=== PATIENT | male | born 2005 | race Caucasian/White ===

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

== ENCOUNTER 2025-04-14 03:30 | Emergency (ER) | payer OTHER, SELFPAY ==
[2025-04-14 03:30] VITALS: BP 160/88; PULSE 81; RESP 16; TEMP 36.6; O2SAT 100; BMI 26.9
--- NOTE | 2025-04-14 03:56 | ED.VIS.GI ---
HPI HPI - GI History of Present Illness Chief Complaint: Abd Pain Informant: patient Narrative Narrative: Patient is a 19-year-old male with no significant PMHx presenting with left lower abdominal pain radiating to the back and testicle. - Onset of pain began yesterday morning, initially mild but worsened throughout the day and became severe by nighttime. - Pain is primarily located in the left lower abdomen, radiating to the back and testicle; describes the pain as bouncing around between these areas. - Denies dysuria, fever, nausea, or emesis. - Reports normal bowel movements. - Pain has improved since last night, with intermittent relief during the journey to the ED. - Took ibuprofen after dinner yesterday around [id number], which provided some relief. - No prior history of similar pain; had an appendectomy 4-5 years ago. -Possibly had a previous kidney stone but did not seek medical attention at that time. PFSH PFSH Medical History no medical history no medical history Home Medications ?Medication ?Instructions ?Recorded ?Last Taken ?Type hydrocodone-acetaminophen 5-325mg 1 tab PO Q4H PRN PRN Pain 3 days 04/14/25 Unknown Rx 5mg-325mg #15 TABLETS tamsulosin 0.4 mg capsule 0.4 mg PO DAILY #7 caps 04/14/25 Unknown Rx Allergy/AdvReac Type Severity Reaction Status Date / Time No Known Allergies Allergy Verified 04/14/25 03:35 Surgical History S/P appendectomy Social History Smoking Status: Never smoker ROS ROS ED Constitutional Constitutional ED: Denies chills or fever(s) Eyes Eyes: Denies change in vision or diplopia ENT ENT ED: Denies rhinorrhea or sore throat Cardiovascular Cardiovascular: Denies chest pain or palpitations Respiratory/Chest Respiratory/Chest: Denies cough or dyspnea Gastrointestinal Gastrointestinal: Reports abdominal pain; Denies diarrhea, nausea or vomiting Genitourinary Genitourinary ED: Reports flank pain; Denies dysuria or hematuria Musculoskeletal Musculoskeletal: Reports other Details: Pain has gone into his left mid back a couple times but not now or consistently ; Denies neck pain Integumentary Denies abscess or rash Neurologic Neurologic: Denies headache(s), paresthesias or weakness Psychiatric Psychiatric: Denies anxiety or suicidal thoughts EXAM Physical Exam Const Vital Signs: 04/14/25 03:30 Temperature 98 F Temperature Source Oral Pulse Rate 81 Respiratory Rate 16 Blood Pressure 160/88 H Blood Pressure Mean 112 Pulse Ox 100 Oxygen Delivery Method Room Air Positive well nourished and well developed General Appearance ED: well developed and NAD HEENT Reports moist mucous membranes normocephalic and atraumatic Eyes PERRL and EOMs intact bilaterally Neck full ROM and supple Resp normal respiratory effort and clear to auscultation bilaterally Cardio regular rate, regular rhythm and no murmurs GI non-tender and non-distended Auscultation: normoactive bowel sounds Palpation: soft Back/Spine no CVA tenderness General Back: other FROM Extremity normal to inspection General Extremety ED: Negative for edema, pulses abnormal or tenderness General Extremity: Negative for edema or pulses abnormal Neuro oriented x3, CN's II-XII intact bilaterally and no sensory deficits noted Sensorium / Orientation: awake and alert Motor Exam: strength 5/5 throughout Skin no rashes or lesions noted and no wounds MDM MDM MDM Narrative Medical decision making narrative: Assessment: The patient is a 19-year-old male with PMH of remote appendectomy presenting for sudden-onset left flank and lower abdominal pain radiating to the groin since yesterday morning. CT imaging demonstrates a 4 mm distal ureteral calculus with no additional stones; urinalysis shows microscopic hematuria, and labs reveal mild leukocytosis (12.4) and mildly elevated BUN/creatinine (23/1.37). Findings correlate with left-sided renal colic due to ureteral stone. Renal function stable enough for outpatient management. Plan: -Analgesics in ED were not needed per patient; advised to avoid ibuprofen given mild NARCISO - Prescribed oral analgesics for pain - Prescribed Flomax to possibly facilitate stone passage - Provided urine strainers and instructions for stone capture - Encouraged aggressive oral hydration - Discharged home with return precautions for fever, intractable pain, vomiting, or urinary obstruction symptoms; follow-up for reevaluation and renal function recheck Diagnostics: - CT abdomen/pelvis without contrast: single 4 mm distal left ureteral calculus; no additional nephrolithiasis; no hydronephrosis - Urinalysis: microscopic hematuria, no signs of infection - CBC: WBC 12.4 K/?L, no left shift or bands - BMP: BUN 23 mg/dL, creatinine 1.37 mg/dL Reevaluations: - Patient re-evaluated after imaging; pain improved, understands diagnosis and discharge instructions Portions of this note were generated using voice recognition software ([employer]). I have reviewed the contents and every effort has been made to ensure accuracy; however, inadvertent errors in grammar, spelling, punctuation, or word choice may occur, that were not noted before signing the document and should not alter the intended clinical meaning. Lab Data Attestation: I reviewed the patient's lab results. Labs: Laboratory Results - last 24 hr 04/14/25 04/14/25 03:38 04:51 WBC 12.4 H RBC 5.21 Hgb 14.3 Hct 43.7 MCV 83.9 MCH 27.4 MCHC 32.7 RDW Std Deviation 38.3 RDW Coeff of Gilberto 12.5 Plt Count 311 MPV 10.6 Immature Gran % (Auto) 0.500 Neut % (Auto) 62.8 Lymph % (Auto) 25.5 [place] % (Auto) 7.1 Eos % (Auto) 3.5 Baso % (Auto) 0.6 Absolute Neuts (auto) 7.8 H Absolute Lymphs (auto) 3.15 Nucleated RBC % 0 Sodium 141 Potassium 3.5 Chloride 104 Carbon Dioxide 24.4 Anion Gap 12 BUN 23 H Creatinine 1.37 H Estim Creat Clear Calc 80.41 Est GFR (MDRD) Non-Af 76 BUN/Creatinine Ratio 16.8 Glucose 98 Calcium 9.5 Urine Color Yellow Urine Clarity Sl. Cloudy Urine pH 6.0 Ur Specific [place] 1.010 Urine Protein 30 H Urine Glucose (UA) Normal Urine Ketones Negative Urine Occult Blood 250 H Urine Nitrite Negative Urine Bilirubin Negative Urine Urobilinogen Normal Ur Leukocyte Esterase Negative Urine RBC 10-25 SEEN Urine WBC 0 SEEN Ur Squamous Epith Cells 0 SEEN Urine Bacteria 0 SEEN Urine Mucus 0 SEEN Radiography Diagnostic Testing: Clinical Impression(s) from Imaging Studies Abdomen/Pelvis CT 04/14/25 04:00 IMPRESSION: Left ureteric calculus with consequent mild proximal backpressure changes. Bilateral renal punctate non obstructing calculi. Reading [facility] [address] Discharge Plan Triage Chief Complaint: Abd Pain ED Provider: Jonathan Fish Dx/Rx/DC Orders Clinical Impression: Renal colic on left side, Ureterolithiasis, NARCISO (acute kidney injury), Bilateral nephrolithiasis Instructions: ED Urine Strainer, ED Kidney Stone with Pain Prescriptions: New hydrocodone-acetaminophen 5-325 mg tablet 1 tab PO Q4H PRN PRN (Reason: Pain) 3 Days Qty: 15 0RF tamsulosin 0.4 mg capsule 0.4 mg PO DAILY Qty: 7 0RF Primary Care Provider: Bello Osei Referrals: Bello Osei MD [Primary Care Provider, Family Practice] Agustin Kirkland MD [Med Staff - Active Staff, Urology] - 10-14 Days if not better Referral Note: if not passing stone in 1-2 weeks Activity Restrictions/Additional Instructions: - Take the prescribed tamsulosin (Flomax) daily to help the stone pass. If you catch a stone in strainer, you may stop this medicine. - Use your prescribed pain medicine as directed as needed for discomfort; avoid ibuprofen for now until you have repeat bloodwork. - Drink plenty of water and other fluids to help flush the stone through your urinary tract. - Each time you urinate, use the provided urine strainer to catch the stone; you?ll see a small pebble in the filter when it passes. - If you develop a fever, cannot keep medications down, or your pain becomes severe and unmanageable, return to the emergency department right away. - Schedule repeat blood tests (BUN and creatinine) as an outpatient to monitor your kidney function (they were bumped up a little but not enough to necesitate admission to hospital) -- drink plenty of fluids in the meantime. Print Language: [place] Disposition Disposition: Home, Self Care
--- NOTE | 2025-04-14 04:00 | CT_ITS ---
PROCEDURE: ABDOMEN/PELVIS WITHOUT CONT 04/14/2025 REASON FOR EXAM: PAIN LEFT FLANK INTO GROIN/SCROTUM TECHNIQUE: Procedure Code: CTABDPEL Modality: CT Procedure: ABDOMEN/PELVIS WITHOUT CONT Noncontrast technique limits evaluation of the abdominal and pelvic viscera. Coronal and Sagittal reconstruction series were provided. One or more dose reduction techniques were used (e.g., Automated exposure control, adjustment of the mA and/or kV according to patient size, use of iterative reconstruction technique). RADIATION DOSE SUMMARY: CTDI Vol 13.71 mGy DLP :713.64 mGycm COMPARISON: none FINDINGS: Left distal ureteric 4 mm calculus with consequent mild proximal left ureteric and pelvicalyceal system dilatation with perinephric and periureteric fat stranding. Both kidneys are of average size showing preserved parenchymal thickness. Bilateral renal punctate non obstructing calculi. No right hydronephrosis. Distension of the urinary bladder. No obvious masses or calculi. No obvious masses related to the reproductive system. Pewlvic phleboli noted. Average sized liver showing homogenous parenchymal attenuation. No dilated intra or extra-hepatic biliary tracts. Distended gall bladder with no dense calculi. The unenhanced pancreas, adrenal, spleen, aorta, and IVC are unremarkable. The appendix is not identified. Colonic fecal loading. The small bowel loops are unremarkable. The stomach is unremarkable. No free air and no ascites. No obvious pathologically enlarged lymph nodes. Scanned osseous structures show no osseous destruction. Scanned lung bases are unremarkable. CT/Abdomen/Pelvis without Cont IMPRESSION: Left ureteric calculus with consequent mild proximal backpressure changes. Bilateral renal punctate non obstructing calculi. Reading Location[facility]
[2025-04-14 04:05] LABS: Hematocrit 43.7 % (40-54); Hemoglobin 14.3 g/dL (13.0-16.5); Immature Granulocytes Count 0.060 X10^3/uL (0.0-0.0); Mean Corp Hgb Conc 32.7 g/dL (32-36); Mean Corpuscular Volume 83.9 fL (80-94); Mean Platelet Vol. 10.6 fl (6.2-12.0); NRBC Flagged by Analyzer 0 % (0-5); Platelet Count 311 K/mm3 (150-450); RBC Distribution Width CV 12.5 % (11.6-14.6); RBC Distribution Width SD 38.3 fl (35.1-43.9); Red Blood Count 5.21 M/mm3 (4.6-6.2); White Blood Count 12.4 K/mm3 (4.4-11.0)
--- OUTSIDE RECORDS SUMMARY | 2025-04-14 04:22 | XMS RPT_ITS | CCD ---
Author Organization [facility] Care Team Providers Care Cpr Ambulance Driver Name Role Phone Sea SLADENDebbi RUSS Primary Care Provider [phone] DEBBI OSEI Primary Care Unavailable DEBBI OSEI Primary Care Unavailable Ford Oliveros Attending Unavailable Debbi Osei Referring Unavailable Debbi Osei Primary Care Unavailable Allergies Allergy Classification Reported Allergen(s) Allergy Type Date of Onset Reaction(s) Facility (4 sources) Albuterol; Translations: [ALBUTEROL] Drug Allergy 05-02-2012 Other: See Comments [facility] Medications Current Medications Medication Drug Class(es) Dates Sig (Normalized) Sig (Original) amoxicillin 875 mg oral tablet (3 sources) Penicillin-class Antibacterial Start: 05-31-2023 End: 06-07-2023 take 1 tablet by mouth twice daily amoxicillin (AMOXIL) 875 mg tablet Take 1 tablet by mouth two times a day for 7 days. 14 tablet 0 05/31/2023 06/07/2023 Active Start: 10-11-2021 End: 10-21-2021 take 1 capsule by mouth twice daily amoxicillin (POLYMOX, AMOXIL) 500 mg capsule Take 1 capsule by mouth twice daily for 10 days. 20 capsule 0 10/11/2021 10/21/2021 Active Comment on above: Take 1 capsule by mo [facility] twice daily for 10 days. Take 1 tablet by renea two times a day for 7 days. Completed/Discontinued Medications Medication Drug Class(es) Dates Sig (Normalized) Sig (Original) lidocaine hydrochloride 20 mg/ml mucous membrane topical solution (3 sources) Antiarrhythmic, Amide Local Anesthetic Start: 08-24-2018 End: 06-04-2023 lidocaine viscous (LIDOCAINE VISCOUS) 2 % solution Gargle and spit 10-15mLs every 3-4 hours as need for throat discomfort. 120 mL 0 08/24/2018 06/04/2023 Discontinued Comment on above: Gargle and spit 10-1 5mLs every 3-4 hours as need for throat discomfort. Problems Problem Classification Problem Date Documented Da te Episodic/Chronic Other upper respiratory infections (2 sources) Streptococcal sore throat; Translations: [Streptococcal pharyngitis] Episodic Otitis media and related conditions (1 source) Acute left otitis media; Translations: [Otitis media, unspecified, left ear] 05-31-2023 Episodic Superficial injury; contusion (1 source) Tick bite; Translations: [Insect bite (nonvenomous) of right front wall of thorax, initial encounter] 06-04-2023 Episodic Results Test Name Value Interpretation Reference Range Facil ity Urgent Care Visit Reporton 0 12-31-2023 Urgent Care Visit Report [facility] [address], [address] [place] [address] OFFICE VISIT Date of Service: 12/31/23 MR#: [id number] Acct: [id number] Name: KRISTOPHERNIXON YEAGER Rep #: [id number] : 2005 Provider: DIPAK Nieto Age/Sex: 18/M Location: [facility] Status: Signed Intake Vital Signs 12/02/20 13:40 12/31/23 11:55 Height 5 ft 8 in 5 ft 7 in Weight: 165 lb BMI 25.8 BP 110/74 Blood Pressure Location Rt brachial Position Sitting Respiration 16 Pulse 88 Pulse Source Monitor Temp 97.8 F Temp Source Temporal Pulse Oximetry (%) 98 Oxygen Delivery Method room air Intake Visit Reasons: BILAT EAR PAIN/SINUS PRESSURE/CONGESTION Chief Complaint: B/L EAR PAIN/ SINUS PRESSURE/ CONGESTION Ju[employer] Officer Required: No Accompanied by: Self Is patient in pain?: No Allergies No Known Allergies Allergy (Verified 12/31/23 11:57) Medications ???Medication ???Instructions ???Recorded ???Confirmed ???Type azithromycin 250 mg tablet See Rx Instructions PO .COMPLEX #6 12/31/23 12/31/23 Rx tabs PFSH Surgical History S/P appendectomy Social History Smoking Status: Never smoker HPI HPI Chief Complaint: B/L EAR PAIN/ SINUS PRESSURE/ CONGESTION Details: NIXON ALCARAZ, is a 18 M who presents to the office today for initial evaluation 48-hour history of sinus congestion each ear pressure, noting left ear is most uncomfortable of all. No complaints of fever, chills, sweats, lightheadedness/dizzin ess, nausea/vomiting. No complaints of chest pain/shortness of breath/dyspnea on exertion. No nlhr-gug-slanmgs products taken to assist. No close contacts with similar complaints. Declining all POC screening upon offering. No other associated symptoms and no other alleviating/aggravatin g factors. ROS Const Constitutional: No other (as above) Exam Const General: cooperative, healthy appearing and no acute distress Nutritional Appearance: average body habitus Orientation: alert, awake and oriented x3 HENMT Head: normal to inspection Ears: hearing grossly normal bilaterally, external ears normal, TM normal right, TM erythematous and bulging left, EAC's normal Nose: external nose normal, nares normal, septum normal and no nasal discharge Face and sinus: normal facial exam, sinuses nontender (Though bilateral maxillary fullness to palpation) and face symmetric Mouth: oral mucosae normal, lip normal, tongue normal and oropharynx normal Throat: posterior oropharynx normal, tonsils normal, uvula midline and postnasal drainage (Purulent) Eyes General: appearance normal, both eyes and all related structures Neck Neck: normal visual inspection, full ROM, no meningeal signs, supple and lymphadenopathy (L>R anterior cervical lymph node swelling/tender to palpation) Neck mass: No Thyroid: thyroid normal Chest Chest palpation inspection: normal inspection of the chest Resp Effort Inspection: normal respiratory effort and able to speak in complete sentences Auscultation: Bilateral: Clear to Auscultation Cardio Palpation: normal PMI Rate: regular rate Rhythm: regular rhythm Heart Sounds: S1 normal, S2 normal, no gallops, no murmurs and no rubs Pulses: radial pulses present GI Inspection: normal to inspection Skin General: no rashes or lesions noted Neuro General: patient alert, patient awake and patient oriented x3 Cognition: normal cognition Speech: speech normal Psych Appearance: grossly normal Mental Status: mental status grossly normal Mood: congruent mood Affect: normal affect Speech and Movement: speech and movement normal Attitude: cooperative Diagnoses Acute otitis media, left H66.92 Acute maxillary sinusitis, unspecified J01.00 Assessment and Plan Assessment and Plan (1) Acute otitis media, left: Status: Acute (2) Acute maxillary sinusitis, unspecified: Status: Acute Plan: Azithromycin as prescribed today. Supportive measures as instructed today. Follow-up with PCP in 3 to 5 days should symptoms not improve, sooner should symptoms worsen or any other concerns develop. Patient states acknowledging understanding all the above Coding Level of Care Code Off vis,new,level 3 Assessment and Plan Assessment and Plan Medications: New azithromycin For 250 mg dose pack: take 500 mg today (day 1), then 250 mg for 4 days (days 2-5) PO 6 tabs 0RF 12/31/23 1345 Date Ford Martins Signature: Date (if applicable) CC: Normal [facility] 06-04-2023 [facility] Office Visit (UCTR ) NIXON ALCARAZ ([id number]) 3 M Date Time Provider Department 06/04/23 10:30 AM BURAK HEIN [facility] During your visit today, we recorded the following information about you: Temperature Pulse Respiration Blood pressure 98.4 degrees 92/minute 19/minute 112/68 Weight 66.2 kg Burak Hein MD 06/04/2023 10:49 AM Signed Patient presents with: Trauma: Tick bite on right side of chest x 1 day HPI: Found a tick on the right chest yesterday. Had been in the [place] the day before. Removed the tick with tweezers. Denies fever, myalgia, or malaise. Currently taking amoxicillin for otitis media. MEDICATIONS: amoxicillin (AMOXIL) 875 mg tablet Take 1 tablet by mouth two times a day for 7 days. ALLERGIES: ALLERGIES Allergen Reactions Albuterol Other: See Comments Mother states he vomits when he uses liquid albuterol VITALS: BP 112/68 Pulse 92 Temp 36.9 ?C (98.4 ?F) Resp 19 Wt 66.2 kg (146 lb) SpO2 99% PE: Pleasant, in no acute distress. EARS: canals clear. RTM without erythema, bulge, or effusion. LTM with remote scaring and effusion, no bulge. SKIN: 2mm dry ulceration with 2mm rim of erythema right upper lateral breast. No foreign body. ASSESSMENT/PLAN: 1. Tick bite of right side of chest wall, initial encounter - ICD9: 911.4, E906.4, ICD10: S20.361A, W57.XXXA Short duration of attachment is very low risk for Lyme transmission. He is also already taking an appropriate antibiotic for Lyme treatment because of his ear infection. May treat with topical antibiotic ointment and monitor for signs of worsening infection. Burak Hein MD Allergies As of Date: 06/04/2023 Noted Allergy Reaction ALBUTEROL 05/02/2012 14 - Other: See Comments Comments: Mother states he vomits when he uses liquid albuterol Date Reviewed: 06/04/2023 Reviewed by: Naomi Rodgers MA - Fully Assessed Reason for Visit: Trauma [112] Cmt: Tick bite on right side of chest x 1 day Primary Visit Diagnosis:Tick bite of right side of chest wall, initial encounter [S20.361A, W57.XXXA] Prescriptions as of 06/04/2023 - amoxicillin (AMOXIL) 875 mg tablet Take 1 tablet by mouth two times a day for 7 days. Problem List As Of Date: 06/04/2023 (None) Medications Discontinued During This Encounter Prescriptions - lidocaine viscous (LIDOCAINE VISCOUS) 2 % solution (Discontinued) Reported on 11/01/2019 Encounter Status:Closed by BURAK HEIN on 06/04/23 [facility] CNOVon 05-31-2023 CNOV Office Visit (UCWSTR ) NIXON ALCARAZ ([id number]) 3 M Date Time Provider Department 05/31/23 11:00 AM KAHLIL SCHULTZ [facility] During your visit today, we recorded the following information about you: Temperature Pulse Respiration Blood pressure 98.8 degrees 85/minute 21/minute 104/72 Weight 66.7 kg Kahlil Schultz PA 05/31/2023 11:16 AM Signed This note was created using Stopango. Subjective Nixon Alcaraz is a 17 year old male. HPI 17-year-old male presents for cough, congestion, body aches, left ear pain. Patient states he has had cough and congestion for the past couple of days. He has some body aches. States he had some nausea and vomiting on Sunday, none since then. Started getting left ear pain last night. No fevers. No sore throat. States he had a right ear infection a few weeks ago. No other complaint. No past medical history on file. No past surgical history on file. ALLERGIES Albuterol MEDICATIONS amoxicillin (AMOXIL) 875 mg tablet Take 1 tablet by mouth two times a day for 7 days. lidocaine viscous (LIDOCAINE VISCOUS) 2 % solution Gargle and spit 10-15mLs every 3-4 hours as need for throat discomfort. (Patient not taking: Reported on 11/01/2019 ) No family history on file. Social History Tobacco Use Smoking status: Never Smokeless tobacco: Never Review of Systems Constitutional: Positive for chills. Negative for fever. HENT: Positive for congestion and ear pain. Negative for sore throat. Respiratory: Positive for cough. Negative for shortness of breath. Gastrointestinal: Positive for nausea. Negative for diarrhea and vomiting. Objective BP 104/72 Pulse 85 Temp 37.1 ?C (98.8 ?F) Resp 21 Wt 66.7 kg (147 lb) SpO2 99% Physical Exam Vitals and nursing note reviewed. Constitutional: General: He is not in acute distress. Appearance: Normal appearance. He is not toxic-appearing. HENT: Right Ear: Tympanic membrane and ear canal normal. Left Ear: Tympanic membrane is erythematous and bulging. Nose: Nose normal. Mouth/Throat: Mouth: Mucous membranes are moist. Pharynx: Uvula midline. Posterior oropharyngeal erythema present. Tonsils: No tonsillar exudate or tonsillar abscesses. 1+ on the right. 1+ on the left. Eyes: Conjunctiva/sclera: Conjunctivae normal. Cardiovascular: Rate and Rhythm: Normal rate and regular rhythm. Pulmonary: Effort: Pulmonary effort is normal. Breath sounds: Normal breath sounds. No wheezing, rhonchi or rales. Skin: General: Skin is warm and dry. Neurological: Mental Status: He is alert. Assessment and Plan ASSESSMENT/PLAN: 1. Acute otitis media, left - ICD9: 382.9, ICD10: H66.92 (primary diagnosis) - Will begin treatment with Amoxicillin for 7 days - Supportive care with plenty of fluids, rest, and analgesia prn. 2. URI, acute - ICD9: 465.9, ICD10: J06.9 - Discussed viral etiology and rationale for treatment. - Symptomatic treatment with prn analgesia - Supportive care with fluids and rest -Declines COVID/flu/RSV swab Diagnosis and treatment plan were discussed and questions were answered to the patient's satisfaction. Pt acknowledged understanding of concepts and follow up plan. Specific signs and symptoms that would indicate the need for higher level of care were discussed in detail warranting prompt ER evaluation. DIPAK Parmar Allergies As of Date: 05/31/2023 Noted Allergy Reaction ALBUTEROL 05/02/2012 14 - Other: See Comments Comments: Mother states he vomits when he uses liquid albuterol Date Reviewed: 05/31/2023 Reviewed by: Naomi Rodgers MA - Fully Assessed Reason for Visit: Ear Problem [38] Cmt: Left ear pain x 1 day, body aches, upset stomach, congestion x 3 days Primary Visit Diagnosis:Acute otitis media, left [H66.92] Other Visit Diagnosis:URI, acute [J06.9] Order(s):amoxicillin (AMOXIL) 875 mg tabletTake 1 tablet by mouth two times a day for 7 days.Disp: 14 tabletRfl: 0 Prescriptions as of 05/31/2023 - amoxicillin (AMOXIL) 875 mg tablet Take 1 tablet by mouth two times a day for 7 days. - lidocaine viscous (LIDOCAINE VISCOUS) 2 % solution Gargle and spit 10-15mLs every 3-4 hours as need for throat discomfort. Problem List As Of Date: 05/31/2023 (None) Prescriptions ordered this encounter Disp Refills Start End AMOXICILLIN 875 MG TABLET 14 t* 0 05/31/2023 06/07/2023 Route: ORAL Sig: Take 1 tablet by mouth two times a day for 7 days. Encounter Status:Closed by KAHLIL SCHULTZ on 05/31/23 Normal [facility] STREP A MOLECULAR (POC)on Procedural Control Valid [facility] Strep A (POCT) Positive Abnormal Negative [facility] Vital Signs Date Time Vital Sign Value Performing Clinician Charmainei tom 06-04-2023 10:28-0500 Body temperature 98.4 [degF] Burak Hein MD Work Phone: [facility] 06-04-2023 10:28-0500 Body weight 66.22 kg Burak Hein MD Work Phone: [facility] 06-04-2023 10:28-0500 Diastolic blood pressure 68 mm[Hg] Burak Hein MD Work Phone: [facility] 06-04-2023 10:28-0500 Heart rate 92 /min Burak Hein MD Work Phone: [facility] 06-04-2023 10:28-0500 Respiratory rate 19 /min Burak Hein MD Work Phone: [facility] 06-04-2023 10:28-0500 SaO2% (BldA) [Mass fraction] 99 % Burak Hein MD Work Phone: [facility] 06-04-2023 10:28-0500 Systolic blood pressure 112 mm[Hg] Burak Hein MD Work Phone: [facility] 05-31-2023 11:07-0500 Body temperature 98.8 [degF] Krislyn Aberegg PA Work Phone: [facility] 05-31-2023 11:07-0500 Body weight 66.68 kg Krislyn Aberegg PA Work Phone: [facility] 05-31-2023 11:07-0500 Diastolic blood pressure 72 mm[Hg] Krislyn Aberegg PA Work Phone: [facility] 05-31-2023 11:07-0500 Heart rate 85 /min Krislyn Aberegg PA Work Phone: [facility] 05-31-2023 11:07-0500 Respiratory rate 21 /min Krislyn Aberegg PA Work Phone: [facility] 05-31-2023 11:07-0500 SaO2% (BldA) [Mass fraction] 99 % Krislyn Aberegg PA Work Phone: [facility] 05-31-2023 11:07-0500 Systolic blood pressure 104 mm[Hg] Krislyn Aberegg PA Work Phone: [facility] 10-11-2021 09:19-0400 Body temperature 98.2 [degF] Mariola Billinsg DONOR RELATIONS COORDINATOR.BRUSH PAINTER Work Phone: [facility] 10-11-2021 09:19-0400 Body weight 64.77 kg Mariola Billings DONOR RELATIONS COORDINATOR.BRUSH PAINTER Work Phone: [facility] 10-11-2021 09:19-0400 Diastolic blood pressure 64 mm[Hg] Mariola Billings DONOR RELATIONS COORDINATOR.BRUSH PAINTER Work Phone: [facility] 10-11-2021 09:19-0400 Heart rate 72 /min Mariola Billings DONOR RELATIONS COORDINATOR.BRUSH PAINTER Work Phone: [facility] 10-11-2021 09:19-0400 Respiratory rate 16 /min Mariola Billings DONOR RELATIONS COORDINATOR.BRUSH PAINTER Work Phone: [facility] 10-11-2021 09:19-0400 SaO2% (BldA) [Mass fraction] 99 % Mariola Billings APRN.BRUSH PAINTER Work Phone: [facility] 10-11-2021 09:19-0400 Systolic blood pressure 122 mm[Hg] Mariola Billings APRN.CNP Work Phone: [facility] Encounters Encounter Date Encounter Type Care Provider Facility Start: 12-31-2023 End: 12-31-2023 ambulatory Ford QUESADA Facility:[facility] Start: 06-04-2023 End: 06-04-2023 ambulatory [facility] Facility:[facility] Start: 06-04-2023 End: 06-04-2023 Patient encounter procedure Burak Hein MD Work Phone: [facility] Comment on above: Tick bite of right s valery of chest wall, initial encounter (Primary Dx) Start: 05-31-2023 End: 05-31-2023 ambulatory [facility] Facility:[facility] Start: 05-31-2023 End: 05-31-2023 Patient encounter procedure Kahlil QUESADA Work Phone: [facility] Comment on above: Acute otitis media, left (Primary Dx); URI, acute Start: 10-11-2021 End: 10-11-2021 Patient encounter procedure Mariola Billings APRN.CNP Work Phone: [facility] Comment on above: Pharyngitis due to S treptococcus species (Primary Dx) Procedures Date Procedure Procedure Detail Performing Clinician Start: 10-11-2021 STREP A MOLECULAR (POC) Mariola Billings APRN.BRUSH PAINTER Work Phone: Plan of Treatment Date Care Activity Detail Author Start: 01-05-2027 Urine microalbumin profile DTa P,Tdap,Td Vaccine (7 - Td or Tdap) [facility] Start: 04-23-2023 Depression Assessment Depression Ass essment [facility] Start: 12-22-2022 Influenza vaccination Influenza Vacc ine (#1) [facility] Start: 2022 Hepatitis C screening Hepatitis C Ok [place] [facility] Start: 2022 HIV screening HIV Screening [facility] Start: 12-22-2021 Influenza vaccination INFLUENZA (Sea son Ended) [facility] Start: 2020 Meningococcal B Vacc ine: Consider Based On Risk (1 of 2 - Patient Seeks Protection) Meningococcal B Vaccine: Consider Based On Risk (1 of 2 - Patient Seeks Protection) [facility] Start: 2020 MENINGOCOCCAL CONJUG ATE (1 - 2-dose series) MENINGOCOCCAL CONJUGATE (1 - 2-dose series) [facility] Start: 2018 PEDS TO ADULT TRANSI TION ANNUAL ASSESSMENT PEDS TO ADULT TRANSITION ANNUAL ASSESSMENT [facility] Start: 2016 Adult depression scr eening assessment DEPRESSION SCREENING [facility] Start: 2016 PEDS TO ADULT TRANSI TION INITIAL DISCUSSION PEDS TO ADULT TRANSITION INITIAL DISCUSSION [facility] Start: 07-05-2015 HPV VACCINE (1 - Mal e 2-dose series) HPV VACCINE (1 - Male 2-dose series) [facility] Start: 2014 MENINGOCOCCAL B: 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 (1 of 2 - Risk Bexsero 2-dose series) MENINGOCOCCAL B: Consider based on risk (1 of 2 - Risk Bexsero 2-dose series) [facility] Start: 2013 HPV Vaccine (1 - Mal e 2-dose series) HPV Vaccine (1 - Male 2-dose series) [facility] Start: 07-05-2011 Urine microalbumin profile DTAP,TDAP ,TD (1 - Tdap) [facility] Start: 2009 COVID-19 VACCINE (#1) COVID-19 VACCI NE (#1) [facility] Start: 2005 MMR (1 of 2 - Standa rd series) MMR (1 of 2 - Standard series) [facility] Start: 2005 VARICELLA (1 of 2 - 2-dose childhood series) VARICELLA (1 of 2 - 2-dose childhood series) [facility] Start: 01-04-2005 Covid-19 Vaccine (#1) Covid-19 Vacci ne (#1) [facility] Start: 2004 POLIO (1 of 3 - 4-do se series) POLIO (1 of 3 - 4-dose series) [facility] Start: 2004 HEPATITIS B (1 of 3 - 3-dose primary series) HEPATITIS B (1 of 3 - 3-dose primary series) [facility] Immunizations Immunization Date Immunization Notes Care Provider Raoul barajas 04-12-2012 influenza virus vacc ine, unspecified formulation Kahlil QUESADA Work Phone: [facility] Payers Date Payer Category Payer Self-pay 2022 Medicaid [id number] 2022 Medicaid [id number] 2022 Medicaid [id number] 2019 Medicaid [employer] [id number] 2019-Present [phone] [address] [place] [address] Medicaid [id number] Unknown [id number] Social History Date Type Detail [facility] Start: 10-11-2021 End: 06-04-2023 Alcohol intake Not Asked [facility] Start: 2005 Sex Assigned At Not on file [facility] Start: 10-01-2021 End: 10-11-2021 Exposure to SARS-CoV-2 (event) Not sure [facility] Work Phone: Start: 03-31-2020 End: 05-31-2023 History of Social function [facility] Start: 03-31-2020 End: 05-31-2023 Tobacco use panel [facility] National Score (1-10 0), lower number is lower risk Not on file [facility] Progress note 06-04-2023 Note Date & Type Note Facility 06-04-2023 Note HNO ID: [id number] Author: BURAK HEIN MD Service: ? Author Type: Physician Type: Progress Notes Filed: 06/04/2023 10:49 Note Text: Patient presents with: Trauma: Tick bite on right side of chest x 1 day HPI: Found a tick on the right chest yesterday. Had been in the [place] the day before. Removed the tick with tweezers. Denies fever, myalgia, or malaise. Currently taking amoxicillin for otitis media. MEDICATIONS: amoxicillin (AMOXIL) 875 mg tablet Take 1 tablet by mouth two times a day for 7 days. ALLERGIES: ALLERGIES Allergen Reactions Albuterol Other: See Comments Mother states he vomits when he uses liquid albuterol VITALS: BP 112/68 Pulse 92 Temp 36.9 ?C (98.4 ?F) Resp 19 Wt 66.2 kg (146 lb) SpO2 99% PE: Pleasant, in no acute distress. EARS: canals clear. RTM without erythema, bulge, or effusion. LTM with remote scaring and effusion, no bulge. SKIN: 2mm dry ulceration with 2mm rim of erythema right upper lateral breast. No foreign body. ASSESSMENT/PLAN: 1. Tick bite of right side of chest wall, initial encounter - ICD9: 911.4, E906.4, ICD10: S20.361A, W57.XXXA Short duration of attachment is very low risk for Lyme transmission. He is also already taking an appropriate antibiotic for Lyme treatment because of his ear infection. May treat with topical antibiotic ointment and monitor for signs of worsening infection. Burak Hein MD [facility] History of Present illness Narrative 06-04-2023 Burak Hein MD - 06/04/2023 10:35 AM EST Note Date & Type Note Facility 06-04-2023 History of Presen t illness Narrative Patient presents with: Trauma: Tick bite on right side of chest x 1 day HPI: Found a tick on the right chest yesterday. Had been in the [place] the day before. Removed the tick with tweezers. Denies fever, myalgia, or malaise. Currently taking amoxicillin for otitis media. MEDICATIONS: amoxicillin (AMOXIL) 875 mg tablet Take 1 tablet by mouth two times a day for 7 days. ALLERGIES: ALLERGIES Allergen Reactions Albuterol Other: See Comments Mother states he vomits when he uses liquid albuterol VITALS: BP 112/68 Pulse 92 Temp 36.9 C (98.4 F) Resp 19 Wt 66.2 kg (146 lb) SpO2 99% PE: Pleasant, in no acute distress. EARS: canals clear. RTM without erythema, bulge, or effusion. LTM with remote scaring and effusion, no bulge. SKIN: 2mm dry ulceration with 2mm rim of erythema right upper lateral breast. No foreign body. ASSESSMENT/PLAN: 1. Tick bite of right side of chest wall, initial encounter - ICD9: 911.4, E906.4, ICD10: S20.361A, W57.XXXA Short duration of attachment is very low risk for Lyme transmission. He is also already taking an appropriate antibiotic for Lyme treatment because of his ear infection. May treat with topical antibiotic ointment and monitor for signs of worsening infection. Burak Hein MD documented in this encounter [facility] Progress note 05-31-2023 Note Date & Type Note Facility 05-31-2023 Note HNO ID: [id number] Author: KAHLIL SCHULTZ PA Service: ? Author Type: Physician Tile Presser Type: Progress Notes Filed: 05/31/2023 11:16 Note Text: This note was created using [employer]. Subjective Nixon Alcaraz is a 17 year old male. HPI 17-year-old male presents for cough, congestion, body aches, left ear pain. Patient states he has had cough and congestion for the past couple of days. He has some body aches. States he had some nausea and vomiting on Sunday, none since then. Started getting left ear pain last night. No fevers. No sore throat. States he had a right ear infection a few weeks ago. No other complaint. No past medical history on file. No past surgical history on file. ALLERGIES Albuterol MEDICATIONS amoxicillin (AMOXIL) 875 mg tablet Take 1 tablet by mouth two times a day for 7 days. lidocaine viscous (LIDOCAINE VISCOUS) 2 % solution Gargle and spit 10-15mLs every 3-4 hours as need for throat discomfort. (Patient not taking: Reported on 11/01/2019 ) No family history on file. Social History Tobacco Use Smoking status: Never Smokeless tobacco: Never Review of Systems Constitutional: Positive for chills. Negative for fever. HENT: Positive for congestion and ear pain. Negative for sore throat. Respiratory: Positive for cough. Negative for shortness of breath. Gastrointestinal: Positive for nausea. Negative for diarrhea and vomiting. Objective BP 104/72 Pulse 85 Temp 37.1 ?C (98.8 ?F) Resp 21 Wt 66.7 kg (147 lb) SpO2 99% Physical Exam Vitals and nursing note reviewed. Constitutional: General: He is not in acute distress. Appearance: Normal appearance. He is not toxic-appearing. HENT: Right Ear: Tympanic membrane and ear canal normal. Left Ear: Tympanic membrane is erythematous and bulging. Nose: Nose normal. Mouth/Throat: Mouth: Mucous membranes are moist. Pharynx: Uvula midline. Posterior oropharyngeal erythema present. Tonsils: No tonsillar exudate or tonsillar abscesses. 1+ on the right. 1+ on the left. Eyes: Conjunctiva/sclera: Conjunctivae normal. Cardiovascular: Rate and Rhythm: Normal rate and regular rhythm. Pulmonary: Effort: Pulmonary effort is normal. Breath sounds: Normal breath sounds. No wheezing, rhonchi or rales. Skin: General: Skin is warm and dry. Neurological: Mental Status: He is alert. Assessment and Plan ASSESSMENT/PLAN: 1. Acute otitis media, left - ICD9: 382.9, ICD10: H66.92 (primary diagnosis) - Will begin treatment with Amoxicillin for 7 days - Supportive care with plenty of fluids, rest, and analgesia prn. 2. URI, acute - ICD9: 465.9, ICD10: J06.9 - Discussed viral etiology and rationale for treatment. - Symptomatic treatment with prn analgesia - Supportive care with fluids and rest -Declines COVID/flu/RSV swab Diagnosis and treatment plan were discussed and questions were answered to the patient's satisfaction. Pt acknowledged understanding of concepts and follow up plan. Specific signs and symptoms that would indicate the need for higher level of care were discussed in detail warranting prompt ER evaluation. DIPAK Parmar [facility] History of Present illness Narrative 05-31-2023 Kahlil Schultz PA - 05/31/2023 11:14 AM EST Note Date & Type Note Facility 05-31-2023 History of Presen t illness Narrative This note was created using [employer]. Subjective Nixon Alcaraz is a 17 year old male. HPI 17-year-old male presents for cough, congestion, body aches, left ear pain. Patient states he has had cough and congestion for the past couple of days. He has some body aches. States he had some nausea and vomiting on Sunday, none since then. Started getting left ear pain last night. No fevers. No sore throat. States he had a right ear infection a few weeks ago. No other complaint. No past medical history on file. No past surgical history on file. ALLERGIES Albuterol MEDICATIONS amoxicillin (AMOXIL) 875 mg tablet Take 1 tablet by mouth two times a day for 7 days. lidocaine viscous (LIDOCAINE VISCOUS) 2 % solution Gargle and spit 10-15mLs every 3-4 hours as need for throat discomfort. (Patient not taking: Reported on 11/01/2019 ) No family history on file. Social History Tobacco Use Smoking status: Never Smokeless tobacco: Never Review of Systems Constitutional: Positive for chills. Negative for fever. HENT: Positive for congestion and ear pain. Negative for sore throat. Respiratory: Positive for cough. Negative for shortness of breath. Gastrointestinal: Positive for nausea. Negative for diarrhea and vomiting. Objective BP 104/72 Pulse 85 Temp 37.1 C (98.8 F) Resp 21 Wt 66.7 kg (147 lb) SpO2 99% Physical Exam Vitals and nursing note reviewed. Constitutional: General: He is not in acute distress. Appearance: Normal appearance. He is not toxic-appearing. HENT: Right Ear: Tympanic membrane and ear canal normal. Left Ear: Tympanic membrane is erythematous and bulging. Nose: Nose normal. Mouth/Throat: Mouth: Mucous membranes are moist. Pharynx: Uvula midline. Posterior oropharyngeal erythema present. Tonsils: No tonsillar exudate or tonsillar abscesses. 1+ on the right. 1+ on the left. Eyes: Conjunctiva/sclera: Conjunctivae normal. Cardiovascular: Rate and Rhythm: Normal rate and regular rhythm. Pulmonary: Effort: Pulmonary effort is normal. Breath sounds: Normal breath sounds. No wheezing, rhonchi or rales. Skin: General: Skin is warm and dry. Neurological: Mental Status: He is alert. Assessment and Plan ASSESSMENT/PLAN: 1. Acute otitis media, left - ICD9: 382.9, ICD10: H66.92 (primary diagnosis) - Will begin treatment with Amoxicillin for 7 days - Supportive care with plenty of fluids, rest, and analgesia prn. 2. URI, acute - ICD9: 465.9, ICD10: J06.9 - Discussed viral etiology and rationale for treatment. - Symptomatic treatment with prn analgesia - Supportive care with fluids and rest -Declines COVID/flu/RSV swab Diagnosis and treatment plan were discussed and questions were answered to the patient's satisfaction. Pt acknowledged understanding of concepts and follow up plan. Specific signs and symptoms that would indicate the need for higher level of care were discussed in detail warranting prompt ER evaluation. DIPAK Parmar documented in this encounter [facility] Instructions 10-11-2021 Patient Instructions Note Date & Type Note Facility 10-11-2021 Instructions Mariola Billings APRN.[employer] - 10/11/2021 9:34 AM EDT STREP INFECTIONS: Streptococcal bacteria can cause a sore throat, ear and sinus infections, and skin diseases. Strep throat is diagnosed by a special throat swab or culture test. These infections require either an antibiotic shot or an oral antibiotic medicine to get rid of all the bacteria and prevent rheumatic fever, a dangerous complication. The symptoms of Strep infection, however, usually get better after just 2-3 days of drug treatment. These infections are very contagious; any close contacts who have a fever, sore throat, or illness symptoms should see their doctor right away. Strep is no longer contagious after 24 hours of antibiotic treatment so you may return to school or work if your fever and pain are better in one day. Strep infections can cause serious complications including throat abscess, rheumatic fever and kidney disease, so be sure to take all your antibiotic medicine. See your doctor or return here if your symptoms worsen or are not improved in 3 days or for difficulty breathing or inability to swallow. documented in this encounter [facility] History of Present illness Narrative 10-11-2021 Mariola Billings APRN.[facility] - 10/11/2021 9:33 AM EDT Note Date & Type Note Facility 10-11-2021 History of Presen t illness Narrative This note was created using Note[employer]. Subjective NIXON Alcaraz is a 16 year old male. 16 year old male with no PMH presents with complaints of sore throat. Acute onset of symptoms yesterday +sore throat +white patches. Enlarged tonsils. Denies accompanying URI sx. Denies fever or chills. Denies SOB or dyspnea Denies cough. 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 No retail sales advisor was used. Sore Throat This is a new problem. The current episode started yesterday. The problem has been gradually worsening. Neither side of throat is experiencing more pain than the other. There has been no fever. The pain is at a severity of 5/10. The pain is mild. Pertinent negatives include no abdominal pain, congestion, coughing, diarrhea, drooling, ear discharge, ear pain, headaches, hoarse voice, plugged ear sensation, neck pain, shortness of breath, stridor, swollen glands, trouble swallowing or vomiting. He has had no exposure to strep or mono. He has tried nothing for the symptoms. The treatment provided no relief. History reviewed. No pertinent past medical history. No past surgical history on file. ALLERGIES Albuterol MEDICATIONS amoxicillin (POLYMOX, AMOXIL) 500 mg capsule Take 1 capsule by mouth twice daily for 10 days. lidocaine viscous (LIDOCAINE VISCOUS) 2 % solution Gargle and spit 10-15mLs every 3-4 hours as need for throat discomfort. No family history on file. Social History Tobacco Use Smoking status: Never Smoker Smokeless tobacco: Never Used Substance Use Topics Alcohol use: Not on file Drug use: Not on file Review of Systems Constitutional: Negative for activity change, appetite change, chills, diaphoresis and fatigue. HENT: Positive for sore throat. Negative for congestion, drooling, ear discharge, ear pain, hoarse voice, rhinorrhea, sinus pressure, sinus pain and trouble swallowing. Eyes: Negative for photophobia, pain, discharge, redness and itching. Respiratory: Negative for cough, shortness of breath and stridor. Cardiovascular: Negative for chest pain, palpitations and leg swelling. Gastrointestinal: Negative for abdominal pain, diarrhea and vomiting. Musculoskeletal: Negative for back pain, gait problem and neck pain. Skin: Negative for color change, pallor, rash and wound. Allergic/Immunologic: Negative for environmental allergies, food allergies and immunocompromised state. Neurological: Negative for dizziness, facial asymmetry and headaches. Hematological: Negative for adenopathy. Does not bruise/bleed easily. Psychiatric/Behavioral: Negative for agitation and behavioral problems. Objective BP 122/64 Pulse 72 Temp 36.8 C (98.2 F) (Tympanic) Resp 16 Wt 64.8 kg (142 lb 12.8 oz) SpO2 99% Physical Exam Vitals and nursing note reviewed. Constitutional: General: He is not in acute distress. Appearance: Normal appearance. He is not ill-appearing, toxic-appearing or diaphoretic. HENT: Head: Normocephalic and atraumatic. Right Ear: External ear normal. Left Ear: External ear normal. Nose: Nose normal. No congestion or rhinorrhea. Mouth/Throat: Mouth: Mucous membranes are moist. Pharynx: Oropharynx is clear. Posterior oropharyngeal erythema (Marked posterior oropharynx erythema. Uvula midline. Handling secretions. ) present. No oropharyngeal exudate. Eyes: General: Right eye: No discharge. Left eye: No discharge. Extraocular Movements: Extraocular movements intact. Conjunctiva/sclera: Conjunctivae normal. Pupils: Pupils are equal, round, and reactive to light. Cardiovascular: Rate and Rhythm: Normal rate and regular rhythm. Pulses: Normal pulses. Heart sounds: Normal heart sounds. No murmur heard. No friction rub. No gallop. Pulmonary: Effort: Pulmonary effort is normal. No respiratory distress. Breath sounds: Normal breath sounds. No stridor. No wheezing, rhonchi or rales. Chest: Chest wall: No tenderness. Abdominal: General: Abdomen is flat. There is no distension. Palpations: Abdomen is soft. There is no mass. Tenderness: There is no abdominal tenderness. There is no guarding or rebound. Hernia: No hernia is present. Musculoskeletal: General: No swelling, tenderness, deformity or signs of injury. Normal range of motion. Cervical back: Normal range of motion and neck supple. No rigidity or tenderness. Right lower leg: No edema. Left lower leg: No edema. Lymphadenopathy: Cervical: No cervical adenopathy. Skin: General: Skin is warm and dry. Capillary Refill: Capillary refill takes less than 2 seconds. Coloration: Skin is not jaundiced or pale. Findings: No bruising, lesion or rash. Neurological: General: No focal deficit present. Mental Status: He is alert and oriented to person, place, and time. Cranial Nerves: No cranial nerve deficit. Sensory: No sensory deficit. Motor: No weakness. Coordination: Coordination normal. Gait: Gait normal. Deep Tendon Reflexes: Reflexes normal. Psychiatric: Mood and Affect: Mood normal. Behavior: Behavior normal. Thought Content: Thought content normal. Assessment and Plan ASSESSMENT/PLAN: 1. Pharyngitis due to Streptococcus species - ICD9: 034.0, ICD10: J02.0 - suspect strep - Alere Strep Test POSITIVE, no culture pending - antibiotic as written - Discussed supportive care treatment with fluids, rest and analgesia. - The patient may also use warm salt water gargles, throat lozenges and/or OTC throat spray as needed and nasal saline gtts and suction prn. - Contagious dz precautions discussed- including considered contagious until on antibiotics for 24 hours - The patient should follow up in 3-5 days if symptoms persist or worsen - Call back if drooling, increased temperature, symptoms of dehydration and/or still sick in one week - STREP A MOLECULAR (POC) Mariola Billings APRN.[facility] documented in this encounter [facility] Evaluation note Note Date & Type Note Facility Evaluation note Diagnosis Pharyngitis due to Streptococcus species- Primary documented in this encounter [facility] Evaluation note Note Date & Type Note Facility Evaluation note Diagnosis Acute otitis media, left- Primary Unspecified otitis media URI, acute Acute upper respiratory infections of unspecified site documented in this encounter [facility] Evaluation note Note Date & Type Note Facility Evaluation note Diagnosis Tick bite of right side of chest wall, initial encounter- Primary documented in this encounter [facility] Summary Purpose Family History No Family History Records FoundNo Family History Records Found Advance Directives No Advanced Directives Records FoundNo Advanced Directives Records Found Additional Source Comments Source Comments (unrecognize d section and content) In the event this informatio n is protected by the Federal Confidentiality of Alcohol and Drug Abuse Patient Records regulations: The Federal rules restrict any use of the information to criminally investigate or prosecute any alcohol or drug abuse patient.[facility] the event this information is protected by the Federal Confidentiality of Alcohol and Drug Abuse Patient Records regulations: The Federal rules restrict any use of the information to criminally investigate or prosecute any alcohol or drug abuse patient.[facility] the event this information is protected by the Federal Confidentiality of Alcohol and Drug Abuse Patient Records regulations: The Federal rules restrict any use of the information to criminally investigate or prosecute any alcohol or drug abuse patient.[facility] Reason for Visit (unrecogniz ed section and content) Reason Comments Sore Throat sore t hroat x 1 day Reason Comments Ear Problem Left ear pain x 1 da y, body aches, upset stomach, congestion x 3 days Reason Comments Trauma Tick bite on right s valery of chest x 1 day Care Teams (unrecognized sec tion and content) Cpr Ambulance Driver Relationship Specialty Start Date End Date Debbi Osei, NOLAN.SPIRITUAL COUNSELOR [address] [place] [address] PCP - General Anesthesiology 10/11/21 Cpr Ambulance Driver Relationship Specialty Start Date End Date Sea Debbi, DONOR RELATIONS COORDINATOR.SPIRITUAL COUNSELOR [address] [place] [address] PCP - General Anesthesiology 10/11/21 Cpr Ambulance Driver Relationship Specialty Start Date End Date Sea Debbi, DONOR RELATIONS COORDINATOR.SPIRITUAL COUNSELOR [address] [place] [address] PCP - General Anesthesiology 10/11/21 (unrecognized sect ion and content) No Status Records FoundNo Status Records Found INFORMATION SOURCE (unrecogn ized section and content) DATE CREATED AUTHOR 06/05/2023 [facility] DATE CREATED AUTHOR 'S LINDSAYIZ ATALLYSON 01/24/2024 [facility] FOR RECORDS PERTAINING TO PATIENTS WHO ARE OR HAVE BEEN ENROLLED IN A CHEMICAL DEPENDENCY/SUBSTANCEABUSE PROGRAM, SOME INFORMATION MAY BE OMITTED. This clinical summary was aggregated from multiple sources. Caution should be exercised in using it in the provision of clinical care. This summary normalizes information from multiple sources, and as a consequence, information in this document may materially change the coding, format and clinical context of patient data. In addition, data may be omitted in some cases. CLINICAL DECISIONS SHOULD BE BASED ON THE PRIMARY CLINICAL RECORDS. [employer] provides no warranty or guarantee of the accuracy or completeness of information in this document.
[2025-04-14 04:23] LABS: Anion Gap 12 (7-18); BUN 23 mg/dL (4-19); BUN/Creat Ratio 16.8 RATIO (10-20); Calcium,Total 9.5 mg/dL (7.6-11.0); Carbon Dioxide 24.4 mmol/L (20.0-29.0); Chloride 104 mmol/L (96-106); Estimated Creatinine Clearance 80.41 ml/min (50-250); Glucose 98 mg/dL (70-99); Potassium 3.5 mmol/L (3.5-5.1)
[2025-04-14 04:55] LABS: Color, Urine Yellow (Yellow); Glucose, Dipstick Normal (Normal); Ketone-Dipstick Negative (Negative); Leukocyte Esterase-Dipstick Negative /ul (Negative); Mucous, Urine 0 SEEN /hpf (<or=2+); Nitrite-Dipstick Negative (Negative); Occult Blood-Urine 250 /ul (Negative); Protein-Dipstick 30 mg/dl (Negative); Specific Gravity, Urine 1.010 (1.002-1.030); Squamous Epithelial Cells - UA 0 SEEN /hpf (0-5); Urine Bilirubin Dipstick Negative (Negative)
[2025-04-14 05:02] LABS: Red Blood Cells-Urine 10-25 SEEN /hpf (0-5)
[2025-04-14 05:27] VITALS: BP 135/87; PULSE 62; RESP 18; TEMP 36.6; O2SAT 99
== END 2025-04-14 05:33 | disposition home or self-care (01) ==
PROVIDERS: Emergency Provider Emergency Medicine; PCP Family Medicine; Visit Provider Emergency Medicine
DX: N20.2 Calculus of kidney with calculus of ureter (principal); N17.9 Acute kidney failure, unspecified; D72.829 Elevated white blood cell count, unspecified
CPT/HCPCS: 74176; 80048; 81001; 85025; 99282; A4216